=== PATIENT | male | born 1960 | race Caucasian/White ===

== ENCOUNTER 2021-12-01 15:19 | Emergency (ER) | payer OTHER ==
[~2021-12-01] VITALS: Ht 172.7 cm; Wt 77.1 kg
--- NOTE | 2021-12-01 15:19 | NUR ---
1st contact w/ patient: [email or web address], c/o palpitations, his skin warm and dry, [email or web address]. 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
[2021-12-01] MEDS ORDERED: DILT-32 PO (15:44)
[2021-12-01] MEDS ORDERED: LISI2.5T14 PO (15:44)
[2021-12-01] MEDS ORDERED: ASPI81TA31 PO (15:44)
[2021-12-01] MEDS ORDERED: ATOR20TA PO (15:44)
[2021-12-01] MEDS ORDERED: METF-442 PO (15:44)
[2021-12-01] MEDS ORDERED: LEVO100T10 PO (15:44)
[2021-12-01] MEDS ORDERED: ADENOSINE 6 MG/2 ML SYR IV ONE (15:45)
[2021-12-01] MEDS ORDERED: IV NORMAL SALINE 500 ML BAG IV ONE (15:45)
[2021-12-01 16:10] LABS: HEMATOCRIT 41.5 % (36.7-47.1); MEAN CORPUSCULAR HEMOGLOBIN 31.3 uug (23.8-33.4); MEAN CORPUSCULAR VOLUME 89.5 fL (73.0-96.2); PLATELET COUNT (AUTO) 363 K/uL (152-348)
[2021-12-01 16:17] LABS: CARBON DIOXIDE 22 mmol/L (21-32); CREATININE 1.5 mg/dL (0.6-1.3); GLUCOSE 138 mg/dL (74-106); UREA NITROGEN, BLOOD 23 mg/dL (7-18)
[2021-12-01 16:19] LABS: CHLORIDE 98 mmol/L (98-107); POTASSIUM 4.2 mmol/L (3.5-5.1)
--- NOTE | 2021-12-01 16:57 | NUR ---
Patient wants to go home, MD notified.
[2021-12-01] MEDS ORDERED: MAGNESIUM SULFATE/D5W 100 ML IV SCH (17:00)
--- NOTE | 2021-12-01 17:19 | NUR ---
clarification of magnesium IV order: only [address] Cornelius
[2021-12-01 18:45] VITALS: BP 97/73
--- NOTE | 2021-12-01 18:57 | NUR ---
PT WAS D/C'd TO HOME. D/C INSTRUCTIONS GIVEN TO THE PT BY DR SHEPPARD.
== END 2021-12-01 18:59 | disposition home or self-care (01) ==
LOC: ER 15:19
DX: I47.1 Supraventricular tachycardia (principal); E83.42 Hypomagnesemia; R74.8 Abnormal levels of other serum enzymes
CPT/HCPCS: 99285; 96365; 71045; 96366; 80048; 83735; 85025; 84484; 36415; 93005 ×2; J3475; J7040; A4663

== ENCOUNTER 2023-06-14 11:11 | Emergency (ER) | payer OTHER ==
[~2023-06-14] VITALS: Ht 172.7 cm; Wt 77.1 kg
[~2023-06-14 11:11] MED LIST: ASPI81TA31 PO; ATOR20TA PO; DILT-32 PO; LEVO100T10 PO; LISI2.5T14 PO; METF-442 PO
[2023-06-14] MEDS ORDERED: IV NORMAL SALINE 1000 ML BAG IV ONE (11:30)
[2023-06-14 12:01] LABS: BASOPHILS % (AUTO) 0.4 % (0.0-2.0); EOSINOPHILS # (AUTO) 0.1 K/uL (0.0-0.7); EOSINOPHILS % (AUTO) 0.5 % (0.0-7.0); HEMOGLOBIN 13.8 g/dL (12.5-16.3); LYMPHOCYTES # (AUTO) 1.2 K/uL (0.8-4.8); LYMPHOCYTES % (AUTO) 11.2 % (20.5-51.5); MEAN CORPUSCULAR HEMOGLOBIN 30.3 uug (23.8-33.4); MEAN CORPUSCULAR HGB CONC 36 g/dL (32.5-36.3); MEAN CORPUSCULAR VOLUME 85.4 fL (73.0-96.2); MONOCYTES % (AUTO) 9.2 % (0.0-11.0); NEUTROPHILS # (AUTO) 8.2 K/uL (1.8-8.9); NEUTROPHILS % (AUTO) 78.7 % (38.5-71.5); PLATELET COUNT (AUTO) 318 K/uL (152-348); RED BLOOD CELL COUNT(AUTO) 4.56 MIL/uL (4.06-5.63); WHITE BLOOD COUNT (AUTO) 10.5 K/uL (3.6-10.2)
[2023-06-14 12:13] LABS: DIFFERENTIAL COMMENT 1
[2023-06-14 12:17] LABS: CALCIUM 8.9 mg/dL (8.5-10.1); CREATININE 2.5 mg/dL (0.6-1.3); POTASSIUM 3.2 mmol/L (3.5-5.1)
[2023-06-14 12:22] LABS: ALBUMIN 3.8 g/dL (3.4-5.0); BILIRUBIN,DIRECT 0.3 mg/dL (0.0-0.2); BILIRUBIN,TOTAL 1.2 mg/dL (0.2-1.0); TOTAL PROTEIN, SERUM 7.1 g/dL (6.4-8.2)
[2023-06-14] MEDS ORDERED: MORPHINE SULFATE 2 MG/1 ML DISP.SYRIN ONE ×2 (12:36→13:14)
[2023-06-14] MEDS ORDERED: ONDANSETRON 4 MG/2 ML VIAL ONE (12:36)
[2023-06-14 12:37] LABS: *BLOOD, URINE 2+ (NEGATIVE); *CLARITY,URINE CLEAR (CLEAR); *COLOR,URINE YELLOW (YELLOW); *KETONES,URINE 1+ (NEGATIVE); *PROTEIN,URINE 2+ (NEGATIVE); *UROBILINOGEN,URINE 0.2 E.U./dl (NORMAL); LEUKOCYTE ESTERASE ,URINE NEGATIVE (NEGATIVE); NITRITE, URINE NEGATIVE (NEGATIVE); UGLUCOSE NEGATIVE (NEGATIVE)
[2023-06-14 12:44] LABS: *BILIRUBIN,URIN 1+ (NEGATIVE)
[2023-06-14] MEDS ORDERED: MORPHINE SULFATE 2 MG/1 ML DISP.SYRIN IV ONE ×2 (12:45→13:15)
[2023-06-14] MEDS ORDERED: ONDANSETRON 4 MG/2 ML VIAL IV ONE (12:45)
[2023-06-14 13:53] VITALS: O2SAT 99
[2023-06-14 19:00] LABS: WBC,URINE 0-3 /HPF (0-3)
[2023-06-14 19:05] LABS: BACTERIA,URINE FEW /HPF (NONE SEEN); SQUAMOUS EPITHELIAL CELL,UR FEW /HPF (NONE SEEN); URINE AMORPHOUS URATE MANY /HPF
== END 2023-06-14 14:41 | disposition home or self-care (01) ==
LOC: ER 11:11
DX: N23 Unspecified renal colic (principal); E86.0 Dehydration; N17.9 Acute kidney failure, unspecified; E87.6 Hypokalemia; E11.9 Type 2 diabetes mellitus without complications; F41.9 Anxiety disorder, unspecified; F32.A Depression, unspecified; Z79.82 Long term (current) use of aspirin; Z79.899 Other long term (current) drug therapy; Z60.2 Problems related to living alone
CPT/HCPCS: 99291; 74176; 96374; 96361; 96375; 80076; 80048; 81001; 83690; 85025; 36415; 96376; J2405; J2270 ×2; J7040; A4606; A4663